=== PATIENT | male | born 1990 | race Caucasian/White ===

== ENCOUNTER 2017-12-26 14:04 | Emergency (ER) | payer OTHER ==
[~2017-12-26] VITALS: Ht 177.8 cm; Wt 113.4 kg
[~2017-12-26 14:04] MED LIST: ACETAMINOPHEN-1 EAC1 PO; AMOXICILLIN875 MG PO; NOHOMEMEDICATIONS; TESSALON PERLE100 MG PO; VENTOLIN HFA 1818 GM INH
[2017-12-26 14:53] LABS: ABSOLUTE BASOPHILS 0.1 thou/uL (0.0-0.2); ABSOLUTE EOSINOPHILS 0.1 thou/uL (0.0-0.7); ABSOLUTE LYMPHOCYTES 1.9 thou/uL (0.8-5.3); ABSOLUTE MONOCYTES 0.5 thou/uL (0.0-1.2); ABSOLUTE NEUTROPHILS 5.4 thou/uL (1.6-8.1); BASOPHILS 0.9 %; HEMATOCRIT 42.5 % (42.0-52.0); HEMOGLOBIN 14.6 gm/dL (14.0-18.0); MCH 27.1 pg (26.0-34.0); MCHC 34.3 g/dL (28.0-37.0); MONOCYTES 6.1 %; MPV 7.8 fl. (7.2-11.1); NUCLEATED RBCS 0 /100WBC; PLATELET COUNT* 273 thou/uL (150-400); RBC 5.39 mil/uL (4.50-6.00); RDW-CV 12.7 % (10.5-14.5)
[2017-12-26 14:57] LABS: CALCIUM 8.9 mg/dL (8.5-10.1); CREATININE 1.1 mg/dL (0.6-1.3); POTASSIUM 3.7 mmol/L (3.5-5.1)
[2017-12-26 15:02] LABS: ALBUMIN 3.8 g/dL (3.4-5.0); TOTAL BILIRUBIN 0.4 mg/dL (<0.1-1.0); TOTAL PROTEIN 6.8 g/dL (6.4-8.2)
[2017-12-26 15:19] VITALS: BP 145/82
--- NOTE | 2017-12-26 15:30 | EKG ---
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 : 1990 Requested By: Beth Hart Order Number: [id number] MD: Angel Keenan Measurements Intervals [place] Rate: 78 P: 45 AK: 142 QRS: 68 QRSD: 98 T: 1 QT: 370 QTc: 422 Interpretive Statements Sinus rhythm Abnormal inferior Q waves Compared to ECG 09/03/2017 18:32:56 Sinus tachycardia no longer present Ventricular premature complex(es) no longer present T-wave abnormality no longer present Electronically Signed On 12-26-2017 15:30:10 CDT by Angel Keenan [email or web address] <ELECTRONICALLY SIGNED> By: Angel Keenan MD, [facility] 12/26/17 1530 1440 1440 Angel Keenan MD, [facility] /EPI
== END 2017-12-26 15:20 | disposition home or self-care (01) ==
LOC: M.ERS 14:04
PROVIDERS: Physician Assistant
DX: R51 Headache (principal); R55 Syncope and collapse; Z88.1 Allergy status to other antibiotic agents